=== PATIENT | male | born 1995 | race African-American/Black ===

== ENCOUNTER → 2016-06-17 | Outpatient (CLI) | payer OTHER, SELFPAY | LOC: M OUTALCOH 09:15 | PROVIDERS: ATTEND Psychiatry & Neurology Psychiatry | DX: F12.20 Cannabis dependence, uncomplicated (principal) ==

== ENCOUNTER 2016-06-25 11:59 | Outpatient (RCR) | payer SELFPAY | END 2016-07-15 | disposition home or self-care (01) | LOC: M OUTALCOH 11:59 | PROVIDERS: ATTEND Psychiatry & Neurology Psychiatry | DX: F12.20 Cannabis dependence, uncomplicated (principal) ==

== ENCOUNTER 2018-10-16 07:40 | Emergency (ER) | payer MEDICAID, SELFPAY ==
[~2018-10-16] VITALS: Ht 177.8 cm; Wt 78.5 kg
[2018-10-16] MEDS ORDERED: ACET-908 PO (07:46)
--- NOTE | 2018-10-16 09:01 | REP ---
LEFT ELBOW, FOUR VIEWS: There is no evidence of an acute fracture, dislocation or intrinsic bone disease. IMPRESSION: No fracture or dislocation. Electronically Signed by Navid Lin MD 10/16/2018 03:10 P
--- NOTE | 2018-10-16 09:27 | REP ---
LEFT HUMERUS, TWO VIEWS: There is no evidence of an acute fracture, dislocation or intrinsic bone disease. IMPRESSION: No fracture or dislocation. Electronically Signed by Navid Lin MD 10/16/2018 03:10 P
--- NOTE | 2018-10-16 09:28 | REP ---
LEFT FOREARM, TWO VIEWS: Two views of the left forearm performed. There is a fracture of the midshaft of the radius. There is medial displacement and mild anterior angulation. Ulna is intact. IMPRESSION: Fracture midshaft radius. Electronically Signed by Navid Lin MD 10/16/2018 03:10 P
[2018-10-16] MEDS ORDERED: PERCOCET 5MG/325MG TAB PO ONE (10:30)
--- NOTE | 2018-10-16 11:39 | REP ---
Left upper extremity duplex Doppler venous ultrasound. Real time compression and duplex Doppler evaluation of the left upper extremity deep venous system is performed. The left subclavian, jugular, axillary, brachial, basilic and cephalic veins are fully compressible where accessible with transducer pressure, and demonstrate no intraluminal thrombus and normal venous waveforms. There is no evidence of deep venous thrombosis. Impression: No evidence of deep venous thrombosis of the left upper extremity deep vein system. Intramuscular hematoma is seen in the left upper arm measuring 4.0 x 2.2 x 2.1 cm. Electronically Signed by Navid Lin MD 10/16/2018 11:30 A
[2018-10-16] MEDS ORDERED: NORCO, ANEXSIA 5/325MG TABLET (HYDROcodone/ACETAMINOPHEN) PO ONE (11:45)
[2018-10-16] MEDS ORDERED: NORC1TAB7 PO (12:52)
[2018-10-16 12:59] VITALS: BP 136/90
--- NOTE | 2018-10-17 21:24 | HPE ---
DATE OF ADMISSION: 10/16/2018 CHIEF COMPLAINT: Left radial shaft fracture. HISTORY OF PRESENT ILLNESS: This 22-year-old man presented to the emergency department of [facility]. He was assessed by the emergency department physician manager relocation. He is found to have a left radius shaft fracture. He was consulted to myself. I saw him and assessed him in the emergency department. He is right-hand dominant. He has never had an injury to the left upper extremity. Apparently he fell down some steps. He did not have a head injury, loss of consciousness, shortness of the breath or chest pain. No other injuries. PAST MEDICAL HISTORY: Includes: 1. Left knee arthritis. 2. Chronic difficulties of breathing or asthma; he is unsure. MEDICATIONS: None. ALLERGIES: AMOXICILLIN and PENICILLIN. SURGICAL HISTORY: None. SOCIAL HISTORY: He lives here in [place] with his cousin. He smokes two packs of cigarettes a day. He does not really drink alcohol. 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 He got out of [facility] about four months ago. He likes to smoke marijuana. He likes to eat a lot of sweets. PHYSICAL EXAMINATION: A 22-year-old man who looks his stated age. VITAL SIGNS: Temperature 98.5, blood pressure 136/90, pulse rate 95, 97% on room air, respiratory rate 16. He is alert and oriented times three. He is able to follow commands, appears slightly anxious and pacing about the room. He is comfortable when he sits down. Not complaining about pain anywhere. Upon inspection of both his upper extremities, there is mild to moderate swelling of his left forearm, nothing on the right side. There is a small abrasion on his left elbow. No open fracture. Skin is intact. Compartments are normal, just slightly swollen with squeezing. No evidence of compartment syndrome. No pain on passive stretch. Radial pulses strong on both sides. No pain up to the shoulder or elbow or in the wrist. Distal, radial, ulnar joint (DRUJ) felt stable and solid on both sides in supination, pronation and neutral, although definitely sore. To move about the wrist on the left side. Pain on the midshaft to the radius on the left side, but nothing on the ulnar side or the forearm. Normal sensation of the hand and the medial and radial ulnar nerves plus good motor function of the same as well as posterior interosseous nerve/anterior interosseous nerve (PIN/AIN). Radiographs taken of the lateral left forearm. This shows a displaced angulated midshaft radius fracture. No obvious fracture on the ulna. There is also AP, lateral and two oblique x-rays of the left elbow. This shows the joint to be congruent. No evidence of dislocation. Unfortunately, there is no left wrist x-rays performed, but I do not see any evidence of distal, radial, ulnar joint (DRUJ) injury on the forearm films. In addition, the radial shaft fracture is approximately 9.3 cm away from the disarticular surface, making the Galeazzi fracture unlikely. ASSESSMENT AND PLAN: This 22-year-old man has a radius shaft fracture in the mid aspect of that. It is transverse in nature and displaced. The typical form of treatment for this is open reduction internal fixation through volar plate. I explained the pros and cons, risks, benefits of going ahead with this. He is really quite anxious and eager to leave the emergency department and really is telling me that he does not want any form of surgery or intervention other than a sling. I would not recommend this due to increased risk of delayed or nonunion. This 22-year-old man was really insistent on having this scheduled as an outpatient surgery and was quite anxious and eager to go outside for a cigarette, so I think the best potential thing at this point to accommodate this already difficult individual would be to have him come to the clinic Thursday and we can set up a specific time as an outpatient to perform the surgery. From what I understand, he had already been waiting there about four hours, so he was quite anxious and agitated when I saw him. I am not concerned about equina syndrome, but I did warn him about increased swelling and pain and if these things were to occur, to return to the emergency department for evaluation. We will treat this in a sling for now, as I do worry if we put a cast on him, he may not return, as he was really asking for cast treatment as a definitive management to this. I did give him my card and directed him to return to the clinic Thursday at 8:30 a.m. to reassess him and try again to have a betty discussion about the risks and benefits of going ahead with surgical fixation of this fracture and to try to find a specific time to perform this. Thank you for involving me in his care.
== END 2018-10-16 13:00 | disposition home or self-care (01) ==
LOC: M ED 07:40
DX: S52.392A Other fracture of shaft of radius, left arm, initial encounter for closed fracture (principal); W10.9XXA Fall (on) (from) unspecified stairs and steps, initial encounter; Y92.099 Unspecified place in other non-institutional residence as the place of occurrence of the external cause; Y93.9 Activity, unspecified; Y99.9 Unspecified external cause status; Z72.0 Tobacco use; Z88.0 Allergy status to penicillin

== ENCOUNTER → 2018-10-21 | Outpatient (REF) | payer OTHER, MEDICAID ==
[~2018-10-21] MED LIST: ACET-908 PO; NORC1TAB7 PO
[2018-10-21 20:02] LABS: BASO # 0.1 10^3/uL (0.0-0.2); BASO % 0.8 % (0.0-1.0); EOS # 0.1 10^3/uL (0.0-0.50); EOS % 0.8 % (0.0-3.0); HEMOGLOBIN 13.1 g/dl (13.5-17.5); LYMPH # 1.5 10^3/uL (1.5-6.5); LYMPH % 20.3 % (24.0-44.0); MEAN CORPUSCULAR HEMOGLOBIN 30.6 pg (27.0-33.0); MEAN CORPUSCULAR HGB CONC 33.6 g/dl (32.0-36.5); MEAN CORPUSCULAR VOLUME 91.1 fl (80.0-96.0); MONO # 0.5 10^3/uL (0.0-0.8); MONO % 6.5 % (0.0-5.0); NEUTROPHILS # 5.1 10^3/uL (1.8-7.7); NEUTROPHILS % 71.2 % (36.0-66.0); PLATELET COUNT, AUTOMATED 323 10^3/uL (150-450); RED BLOOD COUNT 4.28 10^6/uL (4.30-6.10); WHITE BLOOD COUNT 7.2 10^3/uL (4.0-10.0)
[2018-10-21 20:09] LABS: ALBUMIN 4.2 GM/DL (3.2-5.2); ALT/SGPT 46 U/L (12-78); BILIRUBIN,TOTAL 0.9 MG/DL (0.2-1.0); BLOOD UREA NITROGEN 6 MG/DL (7-18); CALCIUM LEVEL 8.7 MG/DL (8.5-10.1); CARBON DIOXIDE LEVEL 28 MEQ/L (21-32); CHLORIDE LEVEL 105 MEQ/L (98-107); CREATININE FOR GFR 0.81 MG/DL (0.70-1.30); GLOMERULAR FILTRATION RATE > 60.0 (>60); GLUCOSE, FASTING 129 MG/DL (70-100); POTASSIUM SERUM 3.6 MEQ/L (3.5-5.1); SODIUM LEVEL 140 MEQ/L (136-145); THYROID STIMULATING HORMONE 0.455 uIU/ML (0.358-3.740); TOTAL PROTEIN 7.7 GM/DL (6.4-8.2)
== END ==
LOC: M LAB REF 19:00
PROVIDERS: ATTEND Family Medicine Addiction Medicine
DX: R53.83 Other fatigue (principal)

== ENCOUNTER 2018-10-25 00:59 | Emergency (ER) | payer MEDICAID, OTHER ==
[~2018-10-25] VITALS: Ht 177.8 cm; Wt 75.0 kg
[2018-10-25 00:59] VITALS: BP 123/84
== END 2018-10-25 01:42 | disposition left against medical advice (07) ==
LOC: M ED 00:59
DX: Z53.21 Procedure and treatment not carried out due to patient leaving prior to being seen by health care provider (principal)

== ENCOUNTER 2019-05-07 23:27 | Emergency (ER) | payer OTHER ==
[~2019-05-07] VITALS: Ht 175.3 cm; Wt 72.7 kg
[2019-05-07 23:28] VITALS: BP 115/69
[2019-05-08] MEDS ORDERED: LIDOCAINE W/EPINEPHRINE 1% 20ML VIAL SC ONE
[2019-05-08] MEDS ORDERED: ADACEL/BOOSTRIX VACCINE (DIPHTH/PERTUSS/ACELL/TETANUS)0.5ML SYR (90715) IM ONE (00:30)
== END 2019-05-08 00:44 | disposition home or self-care (01) ==
LOC: M ED 23:27
DX: S01.111A Laceration without foreign body of right eyelid and periocular area, initial encounter (principal); Y04.0XXA Assault by unarmed brawl or fight, initial encounter; Y92.149 Unspecified place in prison as the place of occurrence of the external cause; F17.210 Nicotine dependence, cigarettes, uncomplicated; Z88.0 Allergy status to penicillin; Z88.6 Allergy status to analgesic agent

== ENCOUNTER 2022-04-19 14:09 | Emergency (ER) | payer OTHER, SELFPAY ==
[~2022-04-19 14:09] MED LIST changes: -ACET-908 PO; +ACET-910 PO
[2022-04-19] MEDS ORDERED: NS 1,000 ML IV ONE ×2 (14:15→16:40)
[2022-04-19 15:08] LABS: BASO # 0.1 10^3/uL (0.0-0.2); BASO % 0.6 % (0.0-1.0); EOS # 0.5 10^3/uL (0.0-0.5); EOS % 5.4 % (0.0-3.0); HEMATOCRIT 40.2 % (42.0-52.0); HEMOGLOBIN 13.3 g/dl (13.5-17.5); LYMPH % 22.7 % (24.0-44.0); MEAN CORPUSCULAR HEMOGLOBIN 29.7 pg (27.0-33.0); MEAN CORPUSCULAR HGB CONC 33.1 g/dl (32.0-36.5); MEAN CORPUSCULAR VOLUME 89.7 fl (80.0-96.0); MONO # 0.7 10^3/uL (0.0-0.8); MONO % 8.1 % (2.0-8.0); NEUTROPHILS # 5.5 10^3/uL (1.5-8.5); PLATELET COUNT, AUTOMATED 297 10^3/uL (150-450); RED BLOOD COUNT 4.48 10^6/uL (4.30-6.10); WHITE BLOOD COUNT 8.7 10^3/uL (4.0-10.0)
[2022-04-19 15:59] LABS: ACETAMINOPHEN LEVEL < 2.0 UG/ML (10.0-30.0); ALT/SGPT 143 U/L (12-78); BILIRUBIN,DIRECT 0.1 MG/DL (0.0-0.2); BILIRUBIN,TOTAL 0.3 MG/DL (0.2-1.0); BLOOD UREA NITROGEN 12 MG/DL (7-18); CALCIUM LEVEL 9.3 MG/DL (8.5-10.1); CARBON DIOXIDE LEVEL 31 MEQ/L (21-32); CHLORIDE LEVEL 104 MEQ/L (98-107); CREATININE FOR GFR 0.99 MG/DL (0.70-1.30); ETHYL ALCOHOL (ETHANOL) < 0.003 % (0.000-0.010); GLOMERULAR FILTRATION RATE > 60.0 (>60); GLUCOSE, FASTING 94 MG/DL (70-100); POTASSIUM SERUM 4.1 MEQ/L (3.5-5.1); SALICYLATE LEVEL < 1.7 MG/DL (5.0-30.0); SODIUM LEVEL 140 MEQ/L (136-145); TOTAL PROTEIN 8.2 GM/DL (6.4-8.2)
[2022-04-19 22:09] LABS: AMPHETAMINES LEVEL URINE POSITIVE (NEGATIVE); BARBITURATES URINE NEGATIVE (NEGATIVE); BENZODIAZEPINES URINE NEGATIVE (NEGATIVE); CANNABINOIDS URINE POSITIVE (NEGATIVE); COCAINE METABOLITE URINE NEGATIVE (NEGATIVE); METHADONE URINE NEGATIVE (NEGATIVE); OPIATES URINE NEGATIVE (NEGATIVE); PHENCYCLIDINE URINE NEGATIVE (NEGATIVE)
[2022-04-19 22:15] VITALS: BP 102/58
[2022-04-20 00:05] VITALS: O2SAT 96
== END 2022-04-20 00:38 | disposition home or self-care (01) ==
LOC: M ED 14:09
DX: F19.10 Other psychoactive substance abuse, uncomplicated (principal); F17.200 Nicotine dependence, unspecified, uncomplicated; Z88.0 Allergy status to penicillin; Z88.6 Allergy status to analgesic agent

== ENCOUNTER → 2022-11-14 | Outpatient (CLI) | payer OTHER ==
[2022-11-14 13:01] LABS: HEMATOCRIT 40.6 % (42.0-52.0); HEMOGLOBIN 13.3 g/dl (13.5-17.5); MEAN CORPUSCULAR HEMOGLOBIN 30.6 pg (27.0-33.0); MEAN CORPUSCULAR HGB CONC 32.8 g/dl (32.0-36.5); MEAN CORPUSCULAR VOLUME 93.5 fl (80.0-96.0); PLATELET COUNT, AUTOMATED 257 10^3/uL (150-450); RED BLOOD COUNT 4.34 10^6/uL (4.30-6.10); WHITE BLOOD COUNT 5.1 10^3/uL (4.0-10.0)
[2022-11-14 13:31] LABS: ALBUMIN 4.1 G/DL (3.2-5.2); ALKALINE PHOSPHATASE 77 U/L (46-116); ALT/SGPT 51 U/L (7.0-40); AST/SGOT 27 U/L (<34); BILIRUBIN,TOTAL 0.2 MG/DL (0.3-1.2); BLOOD UREA NITROGEN 21 MG/DL (9-23); CALCIUM LEVEL 9.1 MG/DL (8.5-10.1); CARBON DIOXIDE LEVEL 32 MMOL/L (20-31); CHLORIDE LEVEL 104 MMOL/L (98-107); CREATININE FOR GFR 0.77 MG/DL (0.70-1.30); GLOMERULAR FILTRATION RATE > 60.0 (>60); GLUCOSE, FASTING 58 MG/DL (60-100); POTASSIUM SERUM 4.5 MMOL/L (3.5-5.1); SODIUM LEVEL 140 MMOL/L (136-145); TOTAL PROTEIN 7.4 G/DL (5.7-8.2)
[2022-11-14 13:45] LABS: HEPATITIS B SURFACE ANTIGEN NEGATIVE (NEGATIVE)
[2022-11-14 13:58] LABS: HIV 1&2 SCREEN NEGATIVE (NEGATIVE)
[2022-11-14 14:16] LABS: HEPATITIS C VIRUS ABY INDEX > 11.0 INDEX (<0.8)
== END ==
LOC: M WUC 08:50
PROVIDERS: ATTEND Family Medicine
DX: F11.20 Opioid dependence, uncomplicated (principal)

== ENCOUNTER 2023-05-14 06:40 | Emergency (ER) | payer OTHER ==
[~2023-05-14] VITALS: Ht 177.8 cm; Wt 67.6 kg
[2023-05-14] MEDS ORDERED: DERMABOND TOPICAL SKIN ADHESIVE TOP ONE (07:35)
[2023-05-14] MEDS ORDERED: ACETAMINOPHEN 500 MG TAB PO ONE (08:10)
[2023-05-14] MEDS ORDERED: DOXY-444 PO (08:21)
[2023-05-14 08:30] VITALS: BP 127/86; TEMP 98.1; O2SAT 99
== END 2023-05-14 08:46 | disposition home or self-care (01) ==
LOC: M ED 06:40
DX: S02.2XXA Fracture of nasal bones, initial encounter for closed fracture (principal); S01.81XA Laceration without foreign body of other part of head, initial encounter; W19.XXXA Unspecified fall, initial encounter; Y92.89 Other specified places as the place of occurrence of the external cause; Y93.89 Activity, other specified; F17.200 Nicotine dependence, unspecified, uncomplicated; Z88.0 Allergy status to penicillin; Z88.8 Allergy status to other drugs, medicaments and biological substances; Z79.899 Other long term (current) drug therapy